=== PATIENT | female | born 1985 | race Caucasian/White ===

== ENCOUNTER 2020-07-18 16:49 | Emergency (ER) | payer OTHER ==
[~2020-07-18 16:49] MED LIST: BENTYL 20MG TAB20 MG PO; FLEXERIL 10 MG10 MG PO; MACROBID 100 M100 MG PO; PROVERA10 MG PO; ZOFRAN ODT 4 MG4 MG PO
[2020-07-18] MEDS ORDERED: IBUPROFEN600 MG PO (18:34)
[2020-07-18] MEDS ORDERED: PREDNISONE 50 M50 MG PO (18:34)
== END 2020-07-18 18:41 | disposition home or self-care (01) ==
LOC: ER1 16:49
DX: R51.9 Headache, unspecified (principal); Z87.39 Personal history of other diseases of the musculoskeletal system and connective tissue; Z88.0 Allergy status to penicillin; Z88.8 Allergy status to other drugs, medicaments and biological substances; Z88.5 Allergy status to narcotic agent
CPT/HCPCS: 99283

== ENCOUNTER 2021-04-05 16:22 | Emergency (ER) | payer OTHER ==
[~2021-04-05 16:22] MED LIST changes: +IBUPROFEN600 MG PO; +PREDNISONE 50 M50 MG PO
[2021-04-05 18:02] LABS: HEMOGLOBIN 13.6 gm/dl (12.3-15.3); RED BLOOD COUNT 4.45 M/UL (4.00-5.10); WHITE BLOOD COUNT 13.7 K/UL (4.5-11.0)
[2021-04-05 18:51] LABS: BUN/CREATININE RATIO 6 (0-10)
[2021-04-05] MEDS ORDERED: ASPIRIN CHEWABL81 MG PO (20:06)
== END 2021-04-05 22:00 | disposition home or self-care (01) ==
LOC: ER1 16:22
PROVIDERS: Emergency Medicine
DX: R07.9 Chest pain, unspecified (principal); E11.9 Type 2 diabetes mellitus without complications; F17.200 Nicotine dependence, unspecified, uncomplicated; R79.89 Other specified abnormal findings of blood chemistry
CPT/HCPCS: 71046; 80053; 82550; 82553; 83874; 84484; 85025; 85379; 93005; 99285